=== PATIENT | female | born 1970 | race Caucasian/White ===

== ENCOUNTER 2016-04-25 13:07 | Emergency (ER) | payer BC ==
[~2016-04-25] VITALS: Ht 162.6 cm; Wt 89.0 kg
[2016-04-25 13:10] VITALS: TEMP 36.8; Ht 162.6 cm; Wt 89.0 kg
[2016-04-25] MEDS ORDERED: CYM/30 PO (13:53)
[2016-04-25] MEDS ORDERED: DULO60CA44 PO (13:53)
[2016-04-25] MEDS ORDERED: VALA500T60 PO (13:53)
[2016-04-25] MEDS ORDERED: METO1TAB66 PO (13:53)
[2016-04-25] MEDS ORDERED: AMPH20CA3 PO (13:53)
[2016-04-25] MEDS ORDERED: ZOLP6.252 PO (13:53)
[2016-04-25] MEDS ORDERED: ALPR0.25 PO (13:53)
[2016-04-25] MEDS ORDERED: ATOR10TA88 PO (13:53)
[2016-04-25] MEDS ORDERED: SODIUM CHLORIDE 0.9% 1000ML 1,000 ML IV STA (13:55)
[2016-04-25] MEDS ORDERED: FLUC150T PO (13:58)
[2016-04-25] MEDS ORDERED: COEN30CA8 PO (13:58)
[2016-04-25] MEDS ORDERED: METH4PAK PO (13:58)
[2016-04-25] MEDS ORDERED: AZITTAB PO (13:58)
[2016-04-25] MEDS ORDERED: FEXO1TAB49 PO (13:58)
[2016-04-25 14:18] VITALS: O2SAT 98
[2016-04-25 14:27] LABS: BASO % 0.2 %; BASO ABS # 0.02 K/uL (0-0.2); COMPLETE YES; EOS % 0.4 %; HEMATOCRIT 42.2 % (37-47); IG% 0.4 %; LYMPH % 26.6 %; MEAN CELL VOLUME 96.3 fL (80-100); MEAN CORPUSCULAR HEMOGLOBIN 33.3 pg (25-34); MEAN CORPUSCULAR HGB CONC 34.6 g/dl (32-36); MEAN PLATELET VOLUME 9.8 fL (7.4-10.4); MONO % 6.7 %; NEUT % 65.7 %; PLATELET COUNT 242 K/uL (130-400); RED BLOOD COUNT 4.38 M/uL (4.2-5.4); WHITE BLOOD COUNT 11.29 K/uL (4.8-10.8)
[2016-04-25 14:36] LABS: INR 0.9 (0.9-1.1); PARTIAL THROMBOPLASTIN RATIO 0.9
[2016-04-25 14:44] LABS: BLOOD UREA NITROGEN 13 mg/dl (7-18); BUN/CREATININE RATIO 14.8 (10-20); CALCIUM 8.7 mg/dl (8.5-10.1); CARBON DIOXIDE 30 mmol/L (21-32); CHLORIDE 104 mmol/L (98-107); CREATININE 0.85 mg/dl (0.60-1.20); GLUCOSE 125 mg/dl (70-99); POTASSIUM 4.1 mmol/L (3.5-5.1); SODIUM 141 mmol/L (136-145)
[2016-04-25 15:00] LABS: ALKALINE PHOSPHATASE 76 U/L (45-117); ALT/SGPT 35 U/L (12-78); AST/SGOT 12 U/L (15-37)
[2016-04-25 15:57] LABS: URINE APPEARANCE CLEAR (CLEAR); URINE BILIRUBIN NEG (NEG); URINE COLOR YELLOW; URINE NITRITE NEG (NEG); URINE PH 6.5 (4.5-7.5); URINE SPECIFIC GRAVITY 1.002 (1.000-1.030); UROBILINOGEN NEG (NEG)
[2016-04-25 16:02] LABS: MANUAL MICROSCOPIC REQUIRED? NO; REVIEW REQ? NO
[2016-04-25 16:19] VITALS: BP 126/82; PULSE 70; O2SAT 98
[2016-04-25] MEDS ORDERED: FAMO1TAB71 PO (16:28)
--- NOTE | 2016-04-25 19:33 | EMERGENCY ROOM VISIT NOTE ---
History Report prepared by Gilles: Travis Vazquez Under the Supervision of: Dr. Jonah Cerna D.O. First contact with patient: 13:28 Chief Complaint: GI ASSESSMENT Stated Complaint: BLACK STOOLS X 2 DAYS Nursing Triage Summary: Pt. recently had an upper respiratory infection that she just finished a course of methylprednisone and she is worried that it was difficult on her stomach, because she is now having black stools and some red blood when she wipes. History of Present Illness The patient is a 45 year old female who presents to the Emergency Room with complaints of episodes of black and red stool beginning yesterday. She notes she has never had these symptoms before. She has had 3 bowel movements since yesterday. She admits to having shortness of breath with her recent upper respiratory illness, but denies any dizziness, lightheadedness, chest pain, back pain, or abdominal pain. The patient reports taking magnesium every night and takes blood pressure medication, but denies taking iron or blood thinners. She notes she has low IgG but is not being treated. She denies any history of hemorrhoids. She is just finishing up a course of steroids. She denies any gross weakness. Source of History: patient Onset: yesterday Position: other (rectum) Quality: other (black and red stool) Timing: other (persistent) Associated Symptoms: + SOB, No abdominal pain, No back pain, No chest pain Note: The patient denies having any dizziness or lightheadedness. Review of Systems See HPI for pertinent positives & negatives. A total of 10 systems reviewed and were otherwise negative. Past Medical & Surgical Medical Problems: (1) History of bronchitis (2) History of hypertension (3) History of pneumonia Family History FH: cancer FH: gallbladder disease Hypertension Seizures Social History Smoking Status: Current Every Day Smoker Current/Historical Medications Scheduled Amphetamine-Dextroamphetamine 20MG (Adderall Xr 20MG), 2 CAP PO QAM Atorvastatin (Lipitor), 1 TAB PO HS Azithromycin (Zithromax Z-Kali), 1 PKT PO UD Coenzyme Q10 (Ubidecarenone) (Coq-10), Unknown Dose PO QAM Duloxetine Hcl (Cymbalta), 30 MG PO DAILY Duloxetine Hcl (Cymbalta), 60 MG PO DAILY Famotidine (Pepcid), 20 MG PO DAILY Fexofenadine Hcl (Loren Allergy), 1 TAB PO QAM Fluconazole (Diflucan), 150 MG PO UD Methylprednisolone (Medrol Dosepak), 1 PKT PO UD Metoprolol Succinate (Toprol Xl), 1 TAB PO DAILY Valacyclovir (Valtrex), 500 MG PO BID Scheduled PRN Alprazolam (Xanax), 0.25 MG PO HS PRN for Sleep Zolpidem Tartrate (Ambien Cr), 1 TAB PO HS PRN for Sleep Allergies Coded Allergies: Erythromycin (Unverified Allergy, Intermediate, vomitting, 04/25/16) Penicillin G (Unverified Allergy, Unknown, unknown, 04/25/16) Physical Exam Vital Signs Date Time Temp Pulse Resp B/P Pulse Ox O2 Delivery O2 Flow Rate FiO2 04/25/16 16:19 70 18 126/82 98 04/25/16 16:07 76 18 99 04/25/16 16:02 74 16 100 04/25/16 15:57 73 18 99 04/25/16 15:52 75 17 92 04/25/16 15:47 71 20 100 04/25/16 15:42 76 17 100 04/25/16 15:37 71 19 100 04/25/16 15:32 70 12 100 04/25/16 15:27 66 20 100 04/25/16 15:24 151/90 04/25/16 15:12 81 14 04/25/16 15:07 78 15 04/25/16 15:02 95 23 04/25/16 14:59 85 04/25/16 14:57 88 13 04/25/16 14:18 98 Room Air 04/25/16 13:10 36.8 94 20 131/88 99 Room Air Physical Exam GENERAL: Sitting in bed, alert, well appearing, well nourished, no distress, non -toxic EYE EXAM: normal conjunctiva OROPHARYNX: no exudate, no erythema, lips, buccal mucosa, and tongue normal and mucous membranes are moist NECK: supple, no nuchal rigidity, no adenopathy, non-tender LUNGS: Clear to auscultation. Normal chest wall mechanics HEART: no murmurs, S1 normal and S2 normal ABDOMEN: abdomen soft, non-tender, normo-active bowel sounds, no masses, no rebound or guarding. BACK: Back is symmetrical on inspection and there is no deformity, no midline tenderness, no CVA tenderness. SKIN: no rashes and no bruising UPPER EXTREMITIES: upper extremities are grossly normal. LOWER EXTREMITIES: No pitting edema. NEURO EXAM: Normal sensorium, cranial nerves II-XII grossly intact, normal speech, no gross weakness of arms, no gross weakness of legs. Gross sensation intact. RECTAL: No hemorrhoids; no fissures; brown heme negative stool. Medical Decision & Procedures Laboratory Results 04/25/16 14:10 Red Blood Count 4.38, Mean Corpuscular Volume 96.3, Mean Corpuscular Hemoglobin 33.3, Mean Corpuscular Hemoglobin Concent 34.6, Mean Platelet Volume 9.8, Neutrophils (%) (Auto) 65.7, Lymphocytes (%) (Auto) 26.6, Monocytes (%) (Auto) 6.7, Eosinophils (%) (Auto) 0.4, Basophils (%) (Auto) 0.2, Neutrophils # (Auto) 7.41, Lymphocytes # (Auto) 3.00, Monocytes # (Auto) 0.76, Eosinophils # (Auto) 0.05, Basophils # (Auto) 0.02 04/25/16 14:10 Test 04/25/16 14:10 04/25/16 15:24 White Blood Count 11.29 K/uL (4.8-10.8) Red Blood Count 4.38 M/uL (4.2-5.4) Hemoglobin 14.6 g/dL (12.0-16.0) Hematocrit 42.2 % (37-47) Mean Corpuscular Volume 96.3 fL (80-100) Mean Corpuscular Hemoglobin 33.3 pg (25-34) Mean Corpuscular Hemoglobin Concent 34.6 g/dl (32-36) Platelet Count 242 K/uL (130-400) Mean Platelet Volume 9.8 fL (7.4-10.4) Neutrophils (%) (Auto) 65.7 % Lymphocytes (%) (Auto) 26.6 % Monocytes (%) (Auto) 6.7 % Eosinophils (%) (Auto) 0.4 % Basophils (%) (Auto) 0.2 % Neutrophils # (Auto) 7.41 K/uL (1.4-6.5) Lymphocytes # (Auto) 3.00 K/uL (1.2-3.4) Monocytes # (Auto) 0.76 K/uL (0.11-0.59) Eosinophils # (Auto) 0.05 K/uL (0-0.5) Basophils # (Auto) 0.02 K/uL (0-0.2) RDW Standard Deviation 44.0 fL (36.4-46.3) RDW Coefficient of Variation 12.5 % (11.5-14.5) Immature Granulocyte % (Auto) 0.4 % Immature Granulocyte # (Auto) 0.05 K/uL (0.00-0.02) Prothrombin Time 10.0 SECONDS (9.0-12.0) Prothromb Time International Ratio 0.9 (0.9-1.1) Activated Partial Thromboplast Time 24.0 SECONDS (21.0-31.0) Partial Thromboplastin Ratio 0.9 Anion Gap 7.0 mmol/L (3-11) Est Creatinine Clear Calc Drug Dose 92.2 ml/min Estimated GFR () 97.3 Estimated GFR (Non- 83.9 BUN/Creatinine Ratio 14.8 (10-20) Calcium Level 8.7 mg/dl (8.5-10.1) Total Bilirubin 0.3 mg/dl (0.2-1) Direct Bilirubin < 0.1 mg/dl (0-0.2) Aspartate Amino Transf (AST/SGOT) 12 U/L (15-37) Alanine Aminotransferase (ALT/SGPT) 35 U/L (12-78) Alkaline Phosphatase 76 U/L (45-117) Total Protein 6.9 gm/dl (6.4-8.2) Albumin 3.9 gm/dl (3.4-5.0) Lipase 196 U/L (73-393) Urine Color YELLOW Urine Appearance CLEAR (CLEAR) Urine pH 6.5 (4.5-7.5) Urine Specific [place] 1.002 (1.000-1.030) Urine Protein NEG (NEG) Urine Glucose (UA) NEG (NEG) Urine Ketones NEG (NEG) Urine Occult Blood NEG (NEG) Urine Nitrite NEG (NEG) Urine Bilirubin NEG (NEG) Urine Urobilinogen NEG (NEG) Urine Leukocyte Esterase NEG (NEG) Laboratory results per my review. Medications Administered Medications (Trade) Dose Ordered Sig/Martina Route Start Time Stop Time Status Last Admin Dose Admin Sodium Chloride (Nss 1000ml) 1,000 ml @ 999 mls/hr Q1H1M STAT IV 04/25/16 13:55 04/25/16 14:55 DC 04/25/16 14:33 999 MLS/HR ECG Indication: other (GI assessment) Rate (beats per minute): 75 Rhythm: sinus rhythm Findings: no ectopy, other (normal axis) ED Course ED COURSE: Vital signs were reviewed and showed normal. The patients medical record was reviewed The above diagnostic studies were performed and reviewed. ED treatments and interventions as stated above. 1330: The patient was evaluated in room C12B. A complete history and physical examination was performed. 1355: Ordered NSS 1,000 ml @ 999 mls/hr IV. 1625: Upon reevaluation, the patient is doing well.I discussed my findings with the patient and she understands and agrees with the treatment plan. Based on the patients age, coexisting illnesses, exam and lab findings the decision to treat as an outpatient was made. The patient remained stable while under my care. The patient appeared well at the time of discharge. Medical Decision Differential diagnosis includes etiologies such as diverticulosis, AVM, coagulopathy, colitis, inflammatory bowel disease, malignancy, Evelyne-Downing tear, esophagitis, peptic ulcer disease, variceal bleed, gastritis, epistaxis, fissure, hemorrhoids, as well as others were entertained. Patient is a 45-year-old female who presents the ER for 3 bowel movements which had red blood along with dark stools. Her last BM was today which shows dark. She denies taking any Motrin or ibuprofen. Patient has absolutely no other complaints. Hemoglobin was 14. No significant leukocytosis. BMP along with bilirubin, LFTs and lipase were unremarkable. UA was negative. INR was normal. Rectal was heme-negative brown stools. BUN was not elevated. Vitals are stable. She was given fluids and her case was discussed with GI who agreed with having the patient follow-up on Wednesday. Any worsening of her symptoms or recurrence of chest importance of returning immediately to the ER. She was unable to give a stool sample while in the ER. I question whether she truly has a GI bleed versus something that she stools however I felt it was reasonable as she was a symptomatic to have her follow-up as an outpatient with GI on Wednesday. Discussed with Pt concerning signs and symptoms to watch out for. Pt was instructed to follow up with their PCP and discussed with the patient their option to return to the ED at anytime for persistent or worsening symptoms. The appropriate anticipatory guidance and out-patient management, including indications for return to the emergency department, were explained at length to the patient and understood. Impression Primary Impression: GI bleed Scribe Attestation The scribe's documentation has been prepared under my direction and personally reviewed by me in its entirety. I confirm that the note above accurately reflects all work, treatment, procedures, and medical decision making performed by me. Departure Information Dispostion Home / Self-Care Prescriptions Famotidine (PEPCID) 20 Mg Tab 20 MG PO DAILY, #30 TAB Prov: Jonah Cerna, DO 04/25/16 Referrals Ramesh Faust M.D. Forms HOME CARE DOCUMENTATION FORM, IMPORTANT VISIT INFORMATION Patient Instructions GI Bleeding - [facility], [facility] Additional Instructions Please follow up with your primary care doctor with in the next 24 hours. Any worsening of your symptoms, please return to the ED immediately. This includes passing out, feeling lightheaded or dizzy, bright red blood per rectum, abdominal pain, or any other concerning signs or symptoms from your standpoint. Please stop taking all steroids. Please also refrain from Motrin, ibuprofen or Aleve. Please call GI on Wednesday morning to set up an appointment. Problem Qualifiers Primary Impression: GI bleed GI bleed type/associated pathology: unspecified gastrointestinal hemorrhage type Qualified Codes: K92.2 - Gastrointestinal hemorrhage, unspecified
== END 2016-04-25 16:41 | disposition home or self-care (01) ==
LOC: C.EDB 13:08 → C.EDC 16:41
DX: K92.2 Gastrointestinal hemorrhage, unspecified (principal); I10 Essential (primary) hypertension; F17.200 Nicotine dependence, unspecified, uncomplicated; Z79.899 Other long term (current) drug therapy; Z88.0 Allergy status to penicillin; Z80.9 Family history of malignant neoplasm, unspecified; Z83.79 Family history of other diseases of the digestive system; Z82.41 Family history of sudden cardiac death; Z82.0 Family history of epilepsy and other diseases of the nervous system

== ENCOUNTER 2017-01-27 05:18 | Observation (INO) | payer BC ==
[2017-01-13 08:15] VITALS: Ht 162.6 cm; Wt 87.7 kg
--- NOTE | 2017-01-13 08:47 | PAT Medication Instructions ---
Service Date Jan 13, 2017. Current Home Medication List Alprazolam (Xanax), 0.25 MG PO HS PRN for Sleep Amphetamine-Dextroamphetamine 20MG (Adderall Xr 20MG), 2 CAP PO QAM Atorvastatin (Lipitor), 1 TAB PO HS Cholecalciferol (Vitamin D3), 1 TAB PO QAM Chromium-Cinnamon (Cinnamon Plus Chromium 100-500 Mcg-mg), 1 CAP PO QAM Coenzyme Q10 (Ubidecarenone) (Coq-10), 1 TAB PO QAM Duloxetine Hcl (Cymbalta), 30 MG PO QAM Duloxetine Hcl (Cymbalta), 60 MG PO QAM Fexofenadine Hcl (Loren Allergy), 1 TAB PO QAM Linaclotide (Linzess), 1 CAP PO QAM Metoprolol Succinate (Toprol Xl), 1 TAB PO QAM Valacyclovir (Valtrex), 500 MG PO BID Zolpidem Tartrate (Ambien Cr), 1 TAB PO HS PRN for Sleep Medication Instructions For Your Scheduled Surgery - Hold the following medications 2 weeks prior to surgery: Chromium-Cinnamon (Cinnamon Plus Chromium 100-500 Mcg-mg), 1 CAP PO QAM Coenzyme Q10 (Ubidecarenone) (Coq-10), 1 TAB PO QAM - Hold the following medications the morning of surgery: Amphetamine-Dextroamphetamine 20MG (Adderall Xr 20MG), 2 CAP PO QAM Cholecalciferol (Vitamin D3), 1 TAB PO QAM Fexofenadine Hcl (Loren Allergy), 1 TAB PO QAM Linaclotide (Linzess), 1 CAP PO QAM - Take the following medications the morning of surgery with a sip of water OTHERWISE NOTHING TO EAT OR DRINK AFTER MIDNIGHT: Valacyclovir (Valtrex), 500 MG PO BID Duloxetine Hcl (Cymbalta), 30 MG PO QAM Duloxetine Hcl (Cymbalta), 60 MG PO QAM Metoprolol Succinate (Toprol Xl), 1 TAB PO QAM - Take the following medications as scheduled the night before surgery: Atorvastatin (Lipitor), 1 TAB PO HS Alprazolam (Xanax), 0.25 MG PO HS PRN for Sleep Zolpidem Tartrate (Ambien Cr), 1 TAB PO HS PRN for Sleep Valacyclovir (Valtrex), 500 MG PO BID If you have any questions please call us at [phone] or [phone] or [phone]
[2017-01-27] VITALS (10 sets, daily range): BP systolic 124–144; BP diastolic 70–94; PULSE 75–97; TEMP 36.5–37.3; O2SAT 94–100
[~2017-01-27] VITALS: Ht 162.6 cm; Wt 87.7 kg
[~2017-01-27 05:18] MED LIST: ALPR0.25 PO; AMPH20CA3 PO; ATOR10TA82 PO; CHOL20007 PO; CHRO1CAP7 PO; COEN30CA8 PO; CYM/30 PO; DULO60CA44 PO; FEXO1TAB49 PO; LINA1CAP PO; METO-452 PO; VALA500T60 PO; ZOLP6.252 PO
[2017-01-27] MEDS ORDERED: LINA72CA (05:45)
[2017-01-27] MEDS ORDERED: CIPROFLOXACIN / D5W 400 MG IV SCH (06:00)
[2017-01-27] MEDS ORDERED: MIDAZOLAM HCL 1 MG/ML 2ML VIAL ONE (06:35)
[2017-01-27] MEDS ORDERED: CISATRACURIUM BESYLATE IV SOLN 2 MG/ML 10 ML VIAL ONE (06:35)
[2017-01-27] MEDS ORDERED: PROPOFOL IV EMULSION 10 MG/ML 20 ML VIAL IV ONE (06:35)
[2017-01-27] MEDS ORDERED: DEXAMETHASONE SOD INJ 4 MG/ML VIAL ONE (06:35)
[2017-01-27] MEDS ORDERED: ONDANSETRON INJ 2 MG/ML 2 ML VIAL ONE (06:35)
[2017-01-27] MEDS ORDERED: LIDOCAINE HCL 2% 2 ML VIAL (20MG/ML) ONE (06:35)
[2017-01-27] MEDS ORDERED: FENTANYL CITRATE INJ 50 MCG/1 ML 2 ML VIAL ONE ×3 (06:36→08:05)
--- NOTE | 2017-01-27 06:43 | History & Physical Bridge Note ---
H&P Re-Evaluation Bridge Note: I have examined the patient, reviewed the History & Physical and in the interval since the performance of the History & Physical I have noted the following changes of clinical significance: No changes noted
[2017-01-27] MEDS ORDERED: FLUC150T PO (06:45)
[2017-01-27] MEDS ORDERED: ACETAMINOPHEN 1000 MG/100 ML IV IV ONE (06:47)
[2017-01-27] MEDS ORDERED: BUPIVACAINE 0.5 % 5 MG/1 ML MPF 30ML VIAL ONE (06:51)
[2017-01-27] MEDS ORDERED: KETAMINE HCL INJ 50 MG/ML 10 ML VIAL ONE (07:23)
[2017-01-27] MEDS ORDERED: LABETALOL HCL IV 5 MG/ML 20ML IV ONE (07:28)
--- NOTE | 2017-01-27 07:42 | [facility] Operative Report ---
Operative Report Operative Date Jan 27, 2017. Pre-Operative Diagnosis Biliary colic and biliary dyskinesia Post-Operative Diagnosis Biliary colic and biliary dyskinesia Procedure(s) Performed Laparoscopic Cholecystectomy Surgeon Dr. Lopez Barba Long Chain Beamer Surgeon(s) Aftab Ha PA-C Estimated Blood Loss 5 mL Findings small duct Specimens Permanent specimens A: Gallbladder and contents Anesthesia gen Complication(s) None Disposition Recovery Room / PACU I attest to the content of the Intraoperative Record and any orders documented therein. Any exceptions are noted below.
[2017-01-27] MEDS ORDERED: HYDROCODONE/ACETAMIN 5/325MG TAB PO PRN (07:45)
[2017-01-27] MEDS ORDERED: KETOROLAC TROMETHAMINE 30 MG/ML VIAL IV. ONE (07:45)
[2017-01-27] MEDS ORDERED: ONDANSETRON INJ 2 MG/ML 2 ML VIAL IV PRN ×2 (07:45→08:15)
[2017-01-27] MEDS ORDERED: MoRPHine SULFATE 4 MG/ML 1 ML CARP\\VIAL IV PRN (07:45)
[2017-01-27] MEDS ORDERED: MoRPHine SULFATE 2 MG/ML CARP IV PRN (07:45)
[2017-01-27] MEDS ORDERED: PROMETHAZINE HCL INJ 25 MG in SODIUM CHLORIDE 0.9% 50ML 50 ML IV PRN (07:45)
[2017-01-27] MEDS ORDERED: HYDR-5688 PO (07:48)
--- NOTE | 2017-01-27 07:52 | Discharge Instructions ---
Discharge Instructions Date of Service Jan 27, 2017. Admission Reason for Admission: Biliary Colic Discharge Discharge Diagnosis / Problem: biliary colic Discharge Goals Goal(s): Decrease discomfort, Improve function, Improve disease control Activity Recommendations Activity Limitations: as noted below Lifting Limitations: no more than 25 pounds (for 3 weeks) Exercise/Sports Limitations: until after follow-up appointment May Resume Sexual Activity: when tolerated Shower/Bathe: tomorrow Driving or Machine Use: resume 3 days after discharge . Instructions / Follow-Up Instructions / Follow-Up SPECIAL CARE INSTRUCTIONS: * Cover incisions and change daily for comfort/drainage. * May leave uncovered with dermabond * May use ibuprofen for pain as tolerated. * Expect some swelling and bruising. Call your doctor if: * Temperature above 101 degrees * Pain not relieved by pain medicine ordered * There is increased drainage or redness from any incision * You have any unanswered questions or concerns [phone]. FOLLOW UP VISIT: If not already scheduled, please call the office for a follow-up visit. for 2 weeks- no sutures to remove OFFICE PHONE NUMBER: Dr. Barba Office Current Hospital Diet Patient's current hospital diet: Regular Diet Discharge Diet Recommended Diet: Regular Diet Procedures Procedures Performed: Laparoscopic Cholecystectomy Pending Studies Studies pending at discharge: no Medical Emergencies . Who to Call and When: Medical Emergencies: If at any time you feel your situation is an emergency, please call 911 immediately. . Non-Emergent Contact Non-Emergency issues call your: Primary Care Provider, Surgeon . "Provider Documentation" section prepared by Lopez Barba. . VTE Core Measure Inpt VTE Proph given/why not?: SCD's
--- NOTE | 2017-01-27 07:57 | OPERATIVE REPORT ---
DATE OF OPERATION: 01/27/2017 NAME OF OPERATION: Laparoscopic cholecystectomy. PREOPERATIVE DIAGNOSIS: Biliary colic and biliary dyskinesia. POSTOPERATIVE DIAGNOSIS: Same. STAFF SURGEON: Dr. Barba. CHARCOAL BURNER BEEHIVE KILN: Darrion Ha PA-C. ANESTHESIA: General. PROCEDURE: The patient was brought in the operating room and placed on the operating table in supine position. Her abdomen was prepped and draped in usual fashion. Pneumatic stockings and orogastric tube were placed. Incision was made just above the umbilicus using 0.5% plain Marcaine to anesthetize all incisions. Dissection was carried down to the fascia, placing a Veress needle producing pneumoperitoneum. Three 5 mm ports were placed, 1 cephalad and 2 laterally, all under visualization. Gallbladder was grasped and retracted. It was aspirated of bile. Dissection was carried out at the chanelle hepatis, identifying the cystic duct and cystic artery. These were clipped and transected. Gallbladder then dissected away from the liver bed in the usual fashion. Gallbladder looked relatively normal. It was removed via an Endobag through the umbilical site. All ports were then removed. The umbilical fascia closed using interrupted 0 Vicryl suture and then the skin reapproximated using subcuticular 4-0 Monocryl and Dermabond. As a note, my surgical assistant certified helped with prepping, draping, placing ports into the abdomen, exposing the gallbladder, retracting the gallbladder and removal of the gallbladder as well as closure of the wounds. I attest to the content of the Intraoperative Record and any orders documented therein. Any exception s are noted below.
[2017-01-27] MEDS ORDERED: PROMETHAZINE HCL INJ 12.5 MG in SODIUM CHLORIDE 0.9% 50ML 50 ML IV PRN (08:15)
[2017-01-27] MEDS ORDERED: ATROPINE SULFATE 0.1 MG/ML 5ML SYR IV PRN (08:15)
[2017-01-27] MEDS ORDERED: NALOXONE HCL 0.4 MG/1 ML VIAL/CARP IV PRN (08:15)
[2017-01-27] MEDS ORDERED: EpHEDrine SULFATE INJ 50 MG/ML AMP IV PRN (08:15)
[2017-01-27] MEDS ORDERED: LABETALOL HCL IV 5 MG/ML 20ML IV PRN (08:15)
[2017-01-27] MEDS ORDERED: FLUMAZENIL 0.1 MG/1 ML 10 ML VIAL IV PRN (08:15)
[2017-01-27] MEDS ORDERED: FENTANYL CITRATE INJ 50 MCG/1 ML 2 ML VIAL IV PRN (08:15)
--- NOTE | 2017-01-27 08:25 | Anesthesiology Progress Note ---
Anesthesia Post Op Note Date & Time Jan 27, 2017 at 08:25 Vital Signs Pain Intensity: 5.0 Vital Signs Past 12 Hours Date Time Temp Pulse Resp B/P (MAP) Pulse Ox O2 Delivery O2 Flow Rate FiO2 01/27/17 08:15 91 19 146/86 97 Mask 10 01/27/17 08:05 83 30 143/81 100 Mask 10 01/27/17 07:56 36.2 94 16 142/96 99 Mask 10 01/27/17 05:55 37.3 95 18 129/77 (94) 97 Room Air Notes Mental Status: alert / awake / arousable, participated in evaluation Pt Amnestic to Procedure: Yes Nausea / Vomiting: adequately controlled Pain: adequately controlled Airway Patency, RR, SpO2: stable & adequate BP & HR: stable & adequate Hydration State: stable & adequate Anesthetic Complications: no major complications apparent
[2017-01-27] MEDS ORDERED: IV FLUIDS COMPLETED PRN (08:45)
[2017-01-27] MEDS: LACTATED RINGER'S 1000ML 1,000 ML IV SCH (10:16)
[2017-01-27] MEDS: HYDROCODONE/ACETAMIN 5/325MG TAB PO PRN ×3 (10:18→19:28)
--- NOTE | 2017-01-27 12:00 | NUR ---
OBS NOTE: pt is resting in bed at this time. vitals stable. IV fluids infusing as ordered. PO pain meds controlling pain. tolerating diet. has not been out of bed yet or voided postoperatively.
--- NOTE | 2017-01-27 12:02 | Medical Consult ---
Consultation Date of Consultation: Jan 27, 2017. Attending Physician: Lopez Barba M.D. Reason for Consultation: Medical management History of Present Illness This is a 46 yo F with PMHx of HTN, HLD, depression, insomnia, anxiety, HSV type 2, chronic tobacco smoker 1 ppd x 30 years, and hx of pituitary adenoma who presented for an elective laparoscopic cholecystectomy with Dr. Barba due to biliary colic and biliary dyskinesia with a HIDA scan from 12/10/16 which had an EF of 25% along with RUQ pain. Pt reports doing well at this point, and is not having any abdominal pain but that it is slightly uncomfortable. She denies any nausea or vomiting. Pt has been tolerating liquids and has ordered a chicken salad for lunch. She lives at home by herself but plans on visiting family over the weekend so will have extra help if needed. Past Medical/Surgical History Medical Problems: (1) Biliary colic (2) Chronic fatigue (3) History of bronchitis (4) History of hypertension (5) History of pneumonia (6) HLD (hyperlipidemia) (7) HTN (hypertension) (8) Obesity (BMI 30.0-34.9) Surgical Problems: (1) S/P laparoscopic cholecystectomy Social History Problems: (1) Tobacco use Family History FH: cancer FH: gallbladder disease Hypertension Seizures Social History Smoking Status: Current Every Day Smoker Smokeless Tobacco Use: No Alcohol Use: socially Drug Use: none Marital Status: single Housing Status: lives alone Occupation Status: employed Allergies Coded Allergies: Erythromycin (Unverified Allergy, Intermediate, vomitting, 01/27/17) Penicillin G (Unverified Allergy, Unknown, unknown, 01/27/17) Current Inpatient Medications Current Inpatient Medications Medications (Trade) Dose Ordered Sig/Martina Route Start Time Stop Time Status Last Admin Dose Admin Ciprofloxacin/ Dextrose 200 ml @ 100 mls/hr PREOP IV 01/27/17 06:00 01/27/17 18:00 01/27/17 06:54 100 MLS/HR Metoprolol Succinate (Toprol Xl Tab) 50 mg QAM PO 01/28/17 09:00 02/27/17 08:59 Lactated Ringer's 1,000 ml @ 50 mls/hr Q20H IV 01/27/17 09:45 02/26/17 09:44 01/27/17 10:16 50 MLS/HR Ciprofloxacin/ Dextrose 400 mg/ Prmx 200 ml @ 100 mls/hr Q12H IV 01/27/17 18:00 01/28/17 17:59 Acetaminophen/ Hydrocodone Bitart ([place] 5/325 Tab) 1 tab Q4 PRN PO 01/27/17 07:45 02/10/17 07:44 Acetaminophen/ Hydrocodone Bitart ([place] 5/325 Tab) 2 tab Q4 PRN PO 01/27/17 07:45 02/10/17 07:44 01/27/17 10:18 2 TAB Morphine Sulfate (MoRPHine SULFATE INJ) 2 mg Q4H PRN IV 01/27/17 07:45 02/10/17 07:44 Morphine Sulfate (MoRPHine SULFATE INJ) 4 mg Q4H PRN IV 01/27/17 07:45 02/10/17 07:44 Promethazine HCl 25 mg/Sodium Chloride 51 ml @ 204 mls/hr Q6H PRN IV 01/27/17 07:45 02/26/17 07:44 Ondansetron HCl (Zofran Inj) 4 mg Q6H PRN IV 01/27/17 07:45 02/26/17 07:44 Fentanyl Citrate (Fentanyl Inj) 25 mcg Q5M PRN IV 01/27/17 08:15 01/27/17 13:30 Naloxone HCl (Narcan Inj) 0.2 mg Q2M PRN IV 01/27/17 08:15 01/27/17 13:30 Flumazenil (Romazicon Inj) 0.2 mg Q2M PRN IV 01/27/17 08:15 01/27/17 13:30 Ondansetron HCl (Zofran Inj) 4 mg ONE PRN IV 01/27/17 08:15 01/27/17 13:30 Promethazine HCl 12.5 mg/Sodium Chloride 50.5 ml @ 202 mls/hr ONE PRN IV 01/27/17 08:15 01/27/17 13:30 Labetalol HCl (Normodyne IV) 5 mg Q5M PRN IV 01/27/17 08:15 01/27/17 13:30 Ephedrine Sulfate (EpHEDrine SULFATE INJ) 5 mg Q5M PRN IV 01/27/17 08:15 01/27/17 13:30 Atropine Sulfate (Atropine Sulfate 0.1MG/Ml Inj) 0.5 mg Q1M PRN IV 01/27/17 08:15 01/27/17 13:30 Miscellaneous (Iv Fluids Completed) 1 ea PRN PRN N/A 01/27/17 08:45 01/27/18 08:44 Review of Systems Constitutional: + fatigue (chronic), No fever, No chills, No sweats, No weight loss Eyes: No redness, No diplopia ENT: No sore throat, No trouble swallowing Respiratory: No cough, No sputum, No wheezing, No shortness of breath Cardiovascular: No chest pain, No edema, No palpitations Abdomen: No pain, No nausea, No vomiting, No diarrhea, No constipation Musculoskeletal: No joint pain, No swelling, No calf pain Neurologic: No numbness/tingling, No balance problems Psychiatric: + depression symptoms, + anxiety, + insomnia Endocrine: + fatigue Integumentary: No rash, No itch Physical Exam Date Time Temp Pulse Resp B/P (MAP) Pulse Ox O2 Delivery O2 Flow Rate FiO2 01/27/17 11:08 75 16 139/84 (102) 96 Room Air 01/27/17 10:21 36.5 75 16 133/88 (103) 97 Room Air 01/27/17 09:47 85 16 133/75 (94) 96 Room Air 01/27/17 09:15 Room Air 01/27/17 09:15 100 Room Air 01/27/17 09:15 36.6 75 16 144/94 (111) 100 Room Air 01/27/17 09:00 86 17 141/92 99 Room Air 01/27/17 08:45 85 16 144/91 99 Room Air 01/27/17 08:35 36.3 86 14 131/86 99 Room Air 01/27/17 08:25 82 18 133/87 98 Room Air 01/27/17 08:15 91 19 146/86 97 Mask 10 01/27/17 08:05 83 30 143/81 100 Mask 10 01/27/17 07:56 36.2 94 16 142/96 99 Mask 10 01/27/17 05:55 37.3 95 18 129/77 (94) 97 Room Air General Appearance: WD/WN, no apparent distress, + obese Head: normocephalic, atraumatic Eyes: normal inspection, PERRL, EOMI ENT: hearing grossly normal, pharynx normal, + pertinent finding (MMM) Neck: supple, no JVD Respiratory/Chest: lungs clear, no accessory muscle use, + pertinent finding ( on RA) Cardiovascular: no murmur, + tachycardia Abdomen/GI: normal bowel sounds, non tender, soft, + pertinent finding (4 laproscopic incision sites closed without drainage or surrounding erythema) Back: normal inspection Extremities/Musculoskelatal: no calf tenderness, no pedal edema Neurologic/Psych: alert, normal mood/affect, oriented x 3 Skin: normal color, warm/dry Laboratory Results Last 24 Hours Test 01/27/17 05:38 Human Chorionic Gonadotropin, Qual NEG Assessment & Plan This is a 46 yo F with PMHx of HTN, HLD, depression, insomnia, anxiety, HSV type 2, chronic tobacco smoker 1 ppd x years, and hx of pituitary adenoma who presented for an elective laproscopic cholecystectomy with Dr. Barba due to biliary colic and biliary dyskinesia with a HIDA scan from 12/10/16 which had an EF of 25% along with RUQ pain. S/p lap veronica - Pain management, diet and bowel regimen per primary team - PT/OT on board, encourage early ambulation - Follow as outpt with Dr. Barba per primary team recs HTN - Continue metoprolol succ 50 mg daily HLD - Continue atorvastatin 10 mg Chronic Tobacco Use - 1 ppd x 30 years - Cessation encouraged - Pt denies need for nicotine patch and reports the patch itself irritates her skin. Depression - Cont Cymbalta 90 mg daily - Continue xanax 0.25 mg QHS Insomnia - Continue Ambien 6.25 mg QHS prn Chronic Fatigue - Taking Adderall ER 40 mg QAM CODE STATUS: FULL CODE Disposition: From home, discharge per primary team Thank you for involving us in the consultation of Mrs. Garza, please call with any questions. Dr. Le Supervising I examined patient and obtained a history from the patient. I agree with above note. My physical examination does not differ from the APC. Will continue with home medications for example continuing metoprolol for hypertension as stated above. If no events overnight, will sign off patient in AM.
[2017-01-27] MEDS ORDERED: ALPRAZOLAM 0.25 MG TAB PO PRN (12:15)
--- NOTE | 2017-01-27 16:00 | NUR ---
A: pt alert and oriented x4. OOB independently w/ steady gait. room air. resps even and unlabored. belly soft and tender in area of lap sites. sites on abdomen glued and well approximated . no drainage to area. BS active. pt states she has not had gas yet. pt enc to do tri flow 10x/hr. IV fluids infusing as per MAR w/o impairment or discomfort. pt states pain is relieved at this time as she was medicated prior to shift. she is tolerating regular diet w/o c/o nausea. pt plans to return home tomorrow . will continue care.
[2017-01-27] MEDS: CIPROFLOXACIN / D5W 400 MG in PREMIXED IN D5W 200 ML IV SCH (18:27)
--- NOTE | 2017-01-27 20:00 | NUR ---
OBS: VSS. Ambulating independently without difficulties. Voiding adequate amounts of urine in toilet. IVF and abx infusing per MD order. Pain controlled with prn meds. Will continue to monitor.
[2017-01-27] MEDS ORDERED: ATORVASTATIN 10 MG TAB PO SCH (21:00)
--- NOTE | 2017-01-28 | NUR ---
OBS: VSS. Patient asleep at this time. IVF infusing per MD order. Voiding adequate amounts of urine in toilet. Denies pain at this time. Plan to go home today. Will continue to monitor.
[2017-01-28] MEDS: HYDROCODONE/ACETAMIN 5/325MG TAB PO PRN ×2 (02:19→07:42)
[2017-01-28] MEDS: LACTATED RINGER'S 1000ML 1,000 ML IV SCH (03:17)
--- NOTE | 2017-01-28 04:00 | NUR ---
OBS: VSS. Sleeping at this time. Pain controlled with prn meds. Voiding adequate amounts of urine in toilet. IVF infusing per MD order. Plan to go home today. Will continue to monitor.
[2017-01-28 04:10] VITALS: BP 188/84; PULSE 76; TEMP 36.7; O2SAT 97
[2017-01-28] MEDS: CIPROFLOXACIN / D5W 400 MG in PREMIXED IN D5W 200 ML IV SCH (05:39)
--- NOTE | 2017-01-28 07:39 | DISCHARGE SUMMARY ---
PRINCIPAL DIAGNOSIS: Biliary colic. PROCEDURES: The patient underwent laparoscopic cholecystectomy. HISTORY OF PRESENT ILLNESS: The patient is a 46-year-old female who has been having upper abdominal pain with GI workup being negative and significantly abnormal HIDA scan. She is for elective cholecystectomy. HOSPITAL COURSE: The patient was brought into the hospital on 01/27/2017 where she underwent laparoscopic cholecystectomy, which she tolerated very well. She has done quite well overnight and was felt stable for discharge home today to be followed in the surgical clinic within 1-2 weeks.
[2017-01-28 07:40] VITALS: BP 188/84; PULSE 76; TEMP 36.7; O2SAT 97
[2017-01-28 07:50] VITALS: BP 143/81; PULSE 94; TEMP 37.1; O2SAT 95
--- NOTE | 2017-01-28 08:09 | NUR ---
OBS: Pt discharged home per Dr. Barba. Instructions and scripts given to patient - verbalized an understanding. Voiding without difficulty. Dermabond sites intact. Iv site removed - IV abx completed. Ambulating without difficulty. Appetite good. Awaiting ride.
[2017-01-28] MEDS ORDERED: METOPROLOL SUCC 50MG EXT REL TAB PO SCH (09:00)
[2017-01-28] MEDS ORDERED: DULOXETINE (CYMBALTA) 30 MG CAP PO SCH (09:00)
[2017-01-28] MEDS ORDERED: AMPHETAMINE ASP/SULF/DEXTRAMPH ER 20 MG CAP PO SCH (09:00)
== END 2017-01-28 08:45 | disposition home or self-care (01) ==
LOC: C.ACU 05:18 → C.MSN 07:47 → ENRESERV 08:49
PROVIDERS: ADMIT Surgery; ATTEND Surgery
DX: K81.1 Chronic cholecystitis (principal); I10 Essential (primary) hypertension; E78.5 Hyperlipidemia, unspecified; M25.50 Pain in unspecified joint; F98.8 Other specified behavioral and emotional disorders with onset usually occurring in childhood and adolescence; F41.8 Other specified anxiety disorders; R53.82 Chronic fatigue, unspecified; K59.00 Constipation, unspecified; D84.9 Immunodeficiency, unspecified; G47.9 Sleep disorder, unspecified; F17.200 Nicotine dependence, unspecified, uncomplicated; Z79.899 Other long term (current) drug therapy

== ENCOUNTER → 2017-04-27 | Outpatient (CLI) | payer BC ==
[~2017-04-27] MED LIST changes: +HYDR-5688 PO; +LINA72CA
--- NOTE | 2017-05-03 12:40 | MAMMOGRAPHY REPORT ---
BILATERAL DIGITAL SCREENING MAMMOGRAM TOMOSYNTHESIS WITH CAD: 04/27/2017 CLINICAL HISTORY: Routine screening. Patient has no complaints. TECHNIQUE: Breast tomosynthesis in addition to standard 2D mammography was performed. Current study was also evaluated with a Computer Aided Detection (CAD) system. COMPARISON: Comparison is made to exams dated: 11/21/2011 mammogram, 09/30/2010 mammogram, 09/27/2009 mammogram, 09/25/2008 mammogram, 09/22/2007 mammogram, and 09/17/2007 mammogram - [facility] . BREAST COMPOSITION: The tissue of both breasts is heterogeneously dense, which may obscure small mas ses. FINDINGS: There is a possible small cluster of calcifications seen within the right slightly superior breast middle depth on the MLO view, thought to project medially on the cc view. Recommend spot mag nification views for further evaluation. The remainder of both breasts demonstrate no suspicious masses, calcifications, or areas of net technical architect ural distortion. A few small circumscribed benign-appearing masses are seen scattered bilaterally, w hich are considered benign given the multiplicity and bilaterality and likely represent cysts. IMPRESSION: ACR BI-RADS CATEGORY 0: INCOMPLETE EVALUATION: NEED ADDITIONAL IMAGING EVALUATION Right breast calcifications, for which additional imaging evaluation is recommended. The patient king l be called to schedule an appointment. Approximately 10% of breast cancers are not detected with mammography. A negative mammographic report should not delay biopsy if a clinically suggestive mass is present. Violeta Lora M.D. ah/:04/30/2017 16:12:00 Party Plan Dealer: Gertrudis REGALADO(Shakira)(Kareem), [facility] letter sent: Addl Imaging 0 BI-RADS Code: ACR BI-RADS Category 0: Incomplete Evaluation: Need Additional Imaging Evaluation
== END | disposition home or self-care (01) ==
LOC: C.MAMM 09:57
PROVIDERS: ATTEND Family Medicine
DX: Z12.31 Encounter for screening mammogram for malignant neoplasm of breast (principal); R92.1 Mammographic calcification found on diagnostic imaging of breast

== ENCOUNTER → 2017-05-14 | Outpatient (CLI) | payer BC ==
--- NOTE | 2017-05-14 15:39 | MAMMOGRAPHY REPORT ---
UNILATERAL RIGHT DIGITAL DIAGNOSTIC MAMMOGRAM: 05/14/2017 CLINICAL HISTORY: Callback from screening mammogram for right breast calcifications. TECHNIQUE: Spot magnification right cc and ML views were obtained. COMPARISON: Comparison is made to exams dated: 04/27/2017 mammogram - [facility], 1 mammogram, 09/30/2010 mammogram, 09/27/2009 mammogram, 09/25/2008 mammogram, and 09/22/2007 [facility]. BREAST COMPOSITION: The tissue of the right breast is heterogeneously dense, which may obscure small masses. FINDINGS: Spot magnification views of the right breast demonstrate a small 7 mm group of faint amorph ous calcifications within the right upper inner quadrant, not evident on the prior exams. The calcif ications are indeterminant and stereotactic biopsy is recommended for further evaluation. IMPRESSION: ACR BI-RADS CATEGORY 4: SUSPICIOUS New grouped amorphous calcifications in the right upper inner quadrant. The calcifications are indet erminate and stereotactic biopsy is recommended for further evaluation. A phone call was made to the physician's office to confirm faxed results were received. The patient has been verbally notified of the results. She tentatively scheduled the biopsy before leaving the [facility]. Approximately 10% of breast cancers are not detected with mammography. A negative mammographic report should not delay biopsy if a clinically suggestive mass is present. Violeta Lora M.D. /:05/14/2017 14:36:20 Energy Scheduler: Alisson HARRIS)(Kareem), [facility] letter sent: Abnormal 4/5 BI-RADS Code: ACR BI-RADS Category 4: Suspicious
== END | disposition home or self-care (01) ==
LOC: C.MAMM 14:14
PROVIDERS: ATTEND Family Medicine
DX: R92.0 Mammographic microcalcification found on diagnostic imaging of breast (principal)